=== PATIENT | male | born 1950 | race Caucasian/White ===

== ENCOUNTER → 2017-01-08 | Outpatient (CLI) | payer MEDICARE, BC | LOC: KOH-I 10:40 | DX: M79.672 Pain in left foot (principal); S99.922A Unspecified injury of left foot, initial encounter; S92.322A Displaced fracture of second metatarsal bone, left foot, initial encounter for closed fracture | CPT/HCPCS: 73630 ==

== ENCOUNTER → 2021-08-30 | Outpatient (CLI) | payer MEDICARE | LOC: HEART 5 08:06 | DX: I25.10 Atherosclerotic heart disease of native coronary artery without angina pectoris (principal); R93.1 Abnormal findings on diagnostic imaging of heart and coronary circulation; E78.00 Pure hypercholesterolemia, unspecified | CPT/HCPCS: 78452; A9502; J2785 ==

== ENCOUNTER → 2022-02-27 | Outpatient (CLI) | payer MEDICARE, BC | LOC: KOH-I 02-18 10:30 | DX: R91.1 Solitary pulmonary nodule (principal) | CPT/HCPCS: 71250 ==